=== PATIENT | female | born 2000 | race Caucasian/White ===

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

== ENCOUNTER 2020-04-11 20:30 | Outpatient (CLI) | payer BC | END 2020-04-11 20:31 | disposition home or self-care (01) | LOC: COV 20:30 | PROVIDERS: ATTEND Family Medicine | DX: R05 Cough (principal); J02.9 Acute pharyngitis, unspecified; R09.81 Nasal congestion; R11.2 Nausea with vomiting, unspecified; Z20.828 Contact with and (suspected) exposure to other viral communicable diseases ==

== ENCOUNTER 2020-08-22 22:51 | Emergency (ER) | payer BC ==
--- OUTSIDE RECORDS SUMMARY | 2020-08-22 22:55 | EXTERNAL MEDICAL SUMMARY RPT | Continuity of Care Document ---
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
--- OUTSIDE RECORDS SUMMARY | 2020-08-22 23:05 | EXTERNAL MEDICAL SUMMARY RPT | Continuity of Care Document ---
:2000 Demographics Phone Unavailable Preferred Language Croatian Marital Status Unknown Druze Affiliation Unknown Race Unknown Ethnic Group Unknown Author Organization [facility] Address [address] [place] [address] Phone Care Team Providers Name Role Phone Miscellaneous Unavailable Unavailable Problems date description facility [id number] Pain in left Located [facility] Social History date description facility [id number]
== END 2020-08-22 22:57 | disposition left against medical advice (07) ==
LOC: ED 22:51
DX: Z53.21 Procedure and treatment not carried out due to patient leaving prior to being seen by health care provider (principal)

== ENCOUNTER 2021-01-12 14:06 | Emergency (ER) | payer BC, OTHER ==
--- NOTE | 2021-01-12 14:12 | ED Physician Documentation ---
PD HPI ABD PAIN - Stated complaint Stated Complaint: ABD PX - History obtained from History obtained from: Patient - History of Present Illness Timing - onset: Last night (abrupt onset about midnight of Right lower abd pain, progressed to right flank.) Timing - details: Abrupt onset, Still present, Waxing and waning. No: Intermittant Quality: Cramping, Aching Location: RLQ Radiation: Right flank Improved by: Laying still Worsened by: Eating, Breathing Associated symptoms: Nausea. No: Fever, Vomiting, Diarrhea, Constipation, Dysuria, Vaginal bleeding, Vaginal dc Similar symptoms before: Has not had sx before Recently seen: Clinic (Initially at the [facility] walk-in with a negative urine dip test and test. Referred to the ER for further evaluation and treatment.) Review of Systems Constitutional: denies: Fever, Chills, Myalgias Nose: denies: Rhinorrhea / runny nose, Congestion Throat: denies: Sore throat Respiratory: denies: Cough GI: reports: Abdominal Pain (since midnight), Nausea. denies: Vomiting, Constipation, Diarrhea : denies: Dysuria, Frequency, Discharge Skin: denies: Rash Musculoskeletal: denies: Extremity swelling Neurologic: denies: Generalized weakness, Near syncope PD PAST MEDICAL HISTORY - Past Medical History Cardiovascular: None Neuro: None Psych: Depression, Anxiety - Past Surgical History Past Surgical History: No - Present Medications Home Medications: Ambulatory Orders Medication Instructions Recorded Confirmed Escitalopram [Lexapro] 10 mg PO DAILY 10/24/18 10/24/18 Ethinyl Estradiol/Drospirenone 1 each PO 10/24/18 [Alicia 28 Tablet] Guanfacine HCl [Intuniv] 10 mg PO DAILY 10/24/18 10/24/18 Methylphenidate HCl [Concerta] 36 mg PO 10/24/18 Docusate Sodium 100Mg Capsule 100 mg PO DAILY #20 cap 01/12/21 [Colace 100Mg Capsule] Ondansetron Odt [Zofran] 4 mg TL Q6H PRN #15 tablet 01/12/21 Oxycodone HCl/Acetaminophen 1 each PO Q6H PRN #18 tablet 01/12/21 [Percocet 5-325 mg Tablet] dexAMETHasone [Decadron] 4 mg PO DAILY #5 tablet 01/12/21 - Allergies Allergies/Adverse Reactions: Allergies Allergy/AdvReac Type Severity Reaction Status Date / Time No Known Drug Allergies Allergy Verified 01/12/21 14:18 - Social History Does the pt smoke?: No Smoking Status: Never smoker Does the pt drink ETOH?: No Does the pt have substance abuse?: No - Immunizations Immunizations are current?: Yes PD ED PE NORMAL - Vitals Vital signs reviewed: Yes - General General: Alert and oriented X 3, Well developed/nourished, Other (Appears in considerable discomfort and holding the right lower abdomen.) - HEENT HEENT: Pharynx benign - Neck Neck: Supple, no meningeal sign, No adenopathy - Cardiac Cardiac: RRR, No murmur - Respiratory Respiratory: Clear bilaterally - Abdomen Abdomen: Normal bowel sounds, Soft, Non distended, No organomegaly, Other (Markedly tender in the right lower quadrant area with percussion and rebound. There is referred tenderness from the mid to the left lower abdomen. Some right CVA tender as well.) - Female Female : Deferred - Rectal Rectal: Deferred - Back Back: Other (right CVAT) - Derm Derm: Normal color, Warm and dry - Neuro Neuro: Alert and oriented X 3, No motor deficit, Normal speech Results - Vitals Vitals: Vital Signs - 24 hr 01/12/21 01/12/21 01/12/21 14:13 15:40 16:50 Temperature 36 C L Heart Rate 79 71 86 Respiratory 18 16 16 Rate Blood Pressure 138/81 H 124/68 117/74 O2 Saturation 97 99 100 Oxygen O2 Source Room air - Labs Labs: Laboratory Tests 01/12/21 01/12/21 01/12/21 14:22 14:22 14:22 WBC 11.3 H RBC 4.57 Hgb 13.1 Hct 40.1 MCV 87.7 MCH 28.7 MCHC 32.7 RDW 13.6 Plt Count 303 MPV 11.3 H Neut # (Auto) 7.1 H Lymph # (Auto) 3.2 [place] # (Auto) 0.8 Eos # (Auto) 0.1 Baso # (Auto) 0.1 Absolute Nucleated RBC 0.00 Nucleated RBC % 0.0 Sodium 135 Potassium 3.5 Chloride 103 Carbon Dioxide 20 L Anion Gap 12.0 BUN 12 Creatinine 0.6 Estimated GFR (MDRD) 126 Glucose 123 H Calcium 9.2 Total Bilirubin 0.4 AST 22 ALT 24 Alkaline Phosphatase 42 Total Protein 7.2 Albumin 3.9 Globulin 3.3 Albumin/Globulin Ratio 1.2 Lipase 28 Serum HCG, Qual NEGATIVE - Rads (name of study) abd CT Radiology: Prelim report reviewed (Normal appendix. Normal kidneys. indistinct m asslike hyperemic lesion right lobe liver. Mild edema. ), See rad report PD MEDICAL DECISION MAKING - ED course Complexity details: reviewed results, re-evaluated patient, considered differential (Consideration for ovarian process though tenderness a bit high in the abdomen. More concerning for appendicitis versus kidney stone versus other process.), d/w patient Departure - Departure Disposition: Home, Self Care Clinical Impression: Right sided abdominal pain, Liver lesion Condition: Stable Record reviewed to determine appropriate education?: Yes Instructions: ED Abdominal Pain Unkn Cause Follow-Up: JEREMIAS RODRÍGUEZ ARNP [Primary Care Provider] - Prescriptions: Docusate Sodium 100Mg Capsule [Colace 100Mg Capsule] 100 mg PO DAILY #20 cap dexAMETHasone [Decadron] 4 mg PO DAILY #5 tablet Oxycodone HCl/Acetaminophen [Percocet 5-325 mg Tablet] 1 each PO Q6H PRN #18 tablet PRN Reason: pain Ondansetron Odt [Zofran] 4 mg TL Q6H PRN #15 tablet PRN Reason: Nausea / Vomiting Comments: Your CT scan shows normal appendix and kidneys. No kidney stones, no signs of ovarian cysts/ruptured cyst. The liver shows a masslike lesion that is not clear what it is. The radiology report suggests MRI would be useful to diagnose this better. This could possibly be unrelated to the pain you are having or might be what is hurting if there is some new swelling/edema around that. Otherwise your pain may be intestinal spasms or cramps. I would suggest anti-inflammatories of Decadron daily, stool softener docusate daily as well. Add Zofran for nausea as needed. Add Tylenol every 4-6 hours for pain or Percocet as needed for worse pain. Follow up with your primary care first thing next week to arrange follow up appointment and to get MRI done. Return if worse pains or problems. Transmitted your prescriptions to [facility] in [place]. I am prescribing a short course of narcotic pain medication for you. These are potentially dangerous and addictive medications that should be used carefully. These medications may constipate you. Take an zwxn-crf-aptnfli stool softener such as docusate twice daily with plenty of water while taking these medications. If you go 24 hours without a bowel movement, take [id number] MiraLAX, per package instructions. Do not drink or drive while taking these medications. If you received narcotic or sedating medications while in the emergency department do not drive for 24 hours. Store this medication in a safe, secure place and out of reach of children. It is a violation of federal law to give or sell this medication to another person or to use in a manner other than prescribed. The ED will not refill narcotic prescriptions, including prescriptions lost or stolen. You can dispose of unwanted medications at the [facility] office or at several pharmacies such as [facility].
[2021-01-12] MEDS ORDERED: SODIUM CHLORIDE 0.9% 1,000 ML IV STA (14:21)
[2021-01-12] MEDS ORDERED: ONDANSETRON 4 MG/2 ML VIAL IVP STA (14:21)
[2021-01-12] MEDS ORDERED: KETOROLAC 15 MG/ML VIAL IVP STA (14:21)
[2021-01-12] MEDS ORDERED: HYDROmorphone 1 MG/ML CARPUJECT IVP STA ×2 (14:21→15:12)
[2021-01-12 14:35] LABS: BASOPHILS # (AUTO) 0.1 10^3/uL (0.0-0.1); BASOPHILS % (AUTO) 0.4 %; EOSINOPHILS # (AUTO) 0.1 10^3/uL (0.0-0.7); EOSINOPHILS % (AUTO) 0.8 %; HCT - HEMATOCRIT 40.1 % (37.0-47.0); HGB - HEMOGLOBIN 13.1 g/dL (12.0-16.0); LYMPHOCYTES # (AUTO) 3.2 10^3/uL (1.5-3.5); MEAN CORPUSCULAR HEMOGLOBIN 28.7 pg (27.0-31.0); MEAN CORPUSCULAR HGB CONC 32.7 g/dL (32.0-36.0); MEAN CORPUSCULAR VOLUME 87.7 fL (81.0-99.0); MEAN PLATELET VOLUME 11.3 fL (7.9-10.8); MONOCYTES # (AUTO) 0.8 10^3/uL (0.0-1.0); MONOCYTES % (AUTO) 7.3 %; NEUTROPHILS # (AUTO) 7.1 10^3/uL (1.5-6.6); PLT - PLATELET COUNT 303 10^3/uL (130-450); RED BLOOD COUNT 4.57 10^6/uL (4.20-5.40); RED CELL DISTRIBUTION WIDTH 13.6 % (12.0-15.0); WHITE BLOOD COUNT 11.3 x10^3/uL (4.8-10.8)
[2021-01-12 14:46] LABS: ALBUMIN 3.9 g/dL (3.2-5.5); ALBUMIN/GLOBULIN RATIO 1.2 (1.0-2.2); BILIRUBIN,TOTAL 0.4 mg/dL (0.2-1.0); CALCIUM 9.2 mg/dL (8.5-10.3); CREATININE 0.6 mg/dL (0.4-1.0); POTASSIUM 3.5 mmol/L (3.5-5.0); TOTAL PROTEIN 7.2 g/dL (6.7-8.2)
[2021-01-12 15:06] LABS: HCG,QUALITATIVE BLOOD NEGATIVE
[2021-01-12] MEDS ORDERED: IOPAMIDOL-300 100 ML VIAL ONE (15:07)
[2021-01-12] MEDS ORDERED: IOPAMIDOL-300 100 ML VIAL IVP ONE (15:30)
--- NOTE | 2021-01-12 15:48 | CT Report ---
PROCEDURE: Abdomen/Pelvis W INDICATIONS: RLQ Abdominal pain, appendicitis suspected CONTRAST: IV CONTRAST: Isovue 300 ml: 100 PO CONTRAST: *NO PO CONTRAST TECHNIQUE: After the administration of intravenous contrast, 5 mm thick sections acquired from the diaphragms to the symphysis. 5 mm thick coronal and sagittal reformats were acquired. For radiation dose reducti on, the following was used: automated exposure control, adjustment of mA and/or kV according to joey ent size. COMPARISON: None. FINDINGS: Image quality: There is metallic streak artifact from patient's surgical hardware in the lower lumbar spine. ABDOMEN: Lung bases: There is mild dependent atelectasis. Heart size is normal. Solid organs: There is an ill-defined hypervascular masslike lesion within the right hepatic lobe me asuring up to 4.1 x 3.5 cm in transverse dimension. Heterogeneous enhancement also demonstrated elsew here throughout the liver suggestive of fatty infiltration or areas of edema. Gallbladder appears wit hin normal limits without calcified gallstones. Biliary system is non dilated. Pancreas enhances nor sammie. No adrenal nodules. The spleen is normal in size. Kidneys demonstrate no hydronephrosis. Peritoneum and bowel: Small bowel loops demonstrate normal wall thickness and caliber. The appendix i s normal in appearance. There is colonic diverticulosis throughout the colon without acute diverticul itis. The transverse, descending, and sigmoid colon are nondistended. No free fluid or air. Nodes and vessels: No retroperitoneal or mesenteric adenopathy by size criteria. Aorta and inferior vena cava are normal in size. Miscellaneous: No ventral hernias. PELVIS: Genitourinary: Bladder wall thickness is normal. Miscellaneous: No inguinal hernias or adenopathy. Bones: Postsurgical changes are demonstrated in the lower lumbar spine status post posterior decompr ession and fusion at L4-S1. An intervertebral spacer is demonstrated at L5-S1 which demonstrates part ial fusion and grade 2 anterolisthesis. No suspicious bony lesions. No vertebral body compression fr actures. IMPRESSION: 1. No evidence of appendicitis. 2. Hypervascular ill-defined mass lesion within the right hepatic lobe. The finding is incompletely c haracterized on the current study. Recommend further evaluation with a liver protocol CT or MRI when clinically feasible. 3. Colonic diverticulosis without acute diverticulitis. Reviewed by: Jason Murry MD on 01/12/2021 3:46 PM PDT Approved by: Jason Murry MD on 01/12/2021 3:46 PM PDT Station ID: [id number]
[2021-01-12] MEDS ORDERED: DEXAMETHASONE 10 MG/ML VIAL IVP STA (16:09)
[2021-01-12 16:51] VITALS: BP 117/74
== END 2021-01-12 16:59 | disposition home or self-care (01) ==
LOC: ED 14:06
DX: R10.31 Right lower quadrant pain (principal); R93.2 Abnormal findings on diagnostic imaging of liver and biliary tract; R39.9 Unspecified symptoms and signs involving the genitourinary system
CPT/HCPCS: 36415; 74177; 80053; 83690; 84703; 85025; 87086; 96374; 96375; 96376; 99284; 99285; J1170; Q9967

== ENCOUNTER 2023-12-22 11:06 | Outpatient (CLI) | payer OTHER ==
[2023-12-22 11:47] LABS: CALCIUM 10.1 mg/dL (8.5-10.3); CREATININE 0.7 mg/dL (0.6-1.3); POTASSIUM 4.1 mmol/L (3.5-4.5)
[2023-12-22 12:00] LABS: THYROID STIMULATING HORMONE 2.05 uIU/mL (0.34-5.60)
== END 2023-12-22 11:07 | disposition home or self-care (01) ==
LOC: LAB 11:06
DX: Z51.81 Encounter for therapeutic drug level monitoring (principal)
CPT/HCPCS: 36415; 80051; 80178; 82310; 82565; 83935; 84439; 84443; 84520